=== PATIENT | female | born 1985 ===

== ENCOUNTER 2020-12-19 00:28 | Outpatient (CLI) | payer OTHER ==
[2020-12-19] MEDS ORDERED: PRENATAL TABLE1 EAC1 PO (00:40)
== END 2020-12-19 09:42 | disposition home or self-care (01) ==
LOC: EDBD 00:28 → OBS/DEL 00:28
PROVIDERS: ATTEND Obstetrics & Gynecology
DX: O47.1 False labor at or after 37 completed weeks of gestation (principal)

== ENCOUNTER 2020-12-19 12:00 | Inpatient (IN) | payer OTHER ==
[~2020-12-19] VITALS: Ht 165.1 cm; Wt 78.9 kg
[~2020-12-19 12:00] MED LIST: PRENATAL TABLE1 EAC1 PO
[2020-12-26] MEDS ORDERED: CODE1TAB37 PO (08:54)
[2020-12-26] MEDS ORDERED: OBSTETRIX ONE PO (08:56)
== END 2020-12-26 10:49 | disposition home or self-care (01) | DRG 787 ==
LOC: EDUNIT# 12:00 → EDBD 12:00 → LDR 12-22 11:19 → SURG-SUITE 12-22 11:19 → LDR 12-22 19:09 → SURG-SUITE 12-23 06:21 → OB/GYN 01-08 12:00
PROVIDERS: ADMIT Obstetrics & Gynecology; ATTEND Obstetrics & Gynecology
PROC: 3E0P7VZ Introduction of Hormone into Female Reproductive, Via Natural or Artificial Opening (ICD-10-PCS; 2020-12-22)
PROC: 4A1HXFZ Monitoring of Products of Conception, Cardiac Rhythm, External Approach (ICD-10-PCS; 2020-12-22)
PROC: 3E033VJ Introduction of Other Hormone into Peripheral Vein, Percutaneous Approach (ICD-10-PCS; 2020-12-23)
PROC: 10D00Z1 Extraction of Products of Conception, Low, Open Approach (ICD-10-PCS; principal; 2020-12-23 04:30)
DX: O36.8330 Maternal care for abnormalities of the fetal heart rate or rhythm, third trimester, not applicable or unspecified (principal); O41.03X0 Oligohydramnios, third trimester, not applicable or unspecified; Z3A.37 37 weeks gestation of pregnancy; Z37.0 Single live birth; Z20.822 Contact with and (suspected) exposure to COVID-19

== ENCOUNTER 2024-12-17 15:46 | Inpatient (IN) | payer OTHER ==
[~2024-12-17] VITALS: Ht 152.4 cm; Wt 2.3 kg
[2024-12-17 15:00] VITALS: BP 117/72
[~2024-12-17 15:46] MED LIST changes: +CODE1TAB37 PO; +OBSTETRIX ONE PO
[2024-12-17] MEDS ORDERED: RINGERS SOLUTION,LACTATED 1,000 ML IV SCH (16:00)
[2024-12-17 16:49] LABS: HEMATOCRIT 36.7 % (36.0-45.00); HEMOGLOBIN 12.5 g/dL (12.0-15.00); MEAN CELL VOLUME 95.8 fL (80.00-100.00); MEAN CORPUSCULAR HEMOGLOBIN 32.7 pg (27.00-32.0); MEAN CORPUSCULAR HGB CONC 34.1 g/dl (32.0-36.0); PLATELET COUNT 276 K/uL (150-450); RED BLOOD COUNT 3.83 M/uL (4.00-6.00); RED CELL DISTRIBUTION WIDTH 13.6 % (11.5-14.5)
[2024-12-17] MEDS ORDERED: PEPCID20 MG PO (17:01)
[2024-12-17 17:17] LABS: INR 0.94; PARTIAL THROMBOPLASTIN TIME 26.9 SECONDS (22.0-34.0); PROTHROMBIN TIME 10.3 SECONDS (9.0-11.5)
[2024-12-17 17:22] LABS: ALBUMIN 2.6 gm/dL (3.4-5.0); BILIRUBIN TOTAL 0.34 mg/dL (0.3-1.2); CREATININE SERUM 0.62 mg/dL (0.55-1.02); GFR 106.08; GLOBULINA 3.8 G/DL (2.4-3.5); POTASSIUM 4.07 mEq/L (3.5-5.1); TOTAL PROTEIN 6.4 gm/dL (6.4-8.2)
[2024-12-17 19:00] VITALS: BP 114/78
[2024-12-17] MEDS ORDERED: MAGNESIUM SULFATE IN WATER 4 GM/100 ML PIGGYBACK IV SCH (22:30)
[2024-12-17] MEDS ORDERED: MAGNESIUM SULFATE IN WATER 0.04 GM/ML IV.SOLN IV SCH (22:30)
[2024-12-17] MEDS ORDERED: CITRIC ACID/SODIUM CITRATE 30 ML BLIST.PACK PO ONE (22:45)
[2024-12-17 23:30] VITALS: BP 105/69
[2024-12-18] MEDS ORDERED: MAGNESIUM SULFATE IN WATER 0.04 GM/ML IV.SOLN IV SCH (01:45)
[2024-12-18] MEDS ORDERED: CEFOXITIN SODIUM 2,000 MG VIAL IV SCH (02:00)
[2024-12-18] MEDS ORDERED: OXYTOCIN 10 UNITS/ML VIAL ONE ×2 (02:14→05:27)
[2024-12-18] MEDS ORDERED: ERYTHROMYCIN BASE OPHT 1GM EACH TUBE OP ONE (02:14)
[2024-12-18] MEDS ORDERED: CITRIC ACID/SODIUM CITRATE 30 ML BLIST.PACK PO ONE (03:00)
[2024-12-18 06:02] VITALS: BP 106/63
[2024-12-18] MEDS ORDERED: PROMETHAZINE HCL 25 MG/ML AMPUL IM PRN (06:15)
[2024-12-18] MEDS ORDERED: MEPERIDINE HCL 25 MG/ML AMPUL IM PRN (06:15)
[2024-12-18] MEDS ORDERED: MEPERIDINE HCL/PF 25 MG,MEPERIDINE HCL/PF 50 MG IM PRN (06:15)
[2024-12-18 08:09] VITALS: BP 114/71
[2024-12-18] MEDS ORDERED: SIMETHICONE 125 MG CAPSULE PO SCH (09:00)
[2024-12-18 09:30] LABS: HEMATOCRIT 35.2 % (36.0-45.00); HEMOGLOBIN 12.2 g/dL (12.0-15.00); MEAN CELL VOLUME 94.9 fL (80.00-100.00); MEAN CORPUSCULAR HEMOGLOBIN 32.8 pg (27.00-32.0); MEAN CORPUSCULAR HGB CONC 34.5 g/dl (32.0-36.0); PLATELET COUNT 263 K/uL (150-450); RED BLOOD COUNT 3.71 M/uL (4.00-6.00); RED CELL DISTRIBUTION WIDTH 13.8 % (11.5-14.5)
[2024-12-18] MEDS ORDERED: KETOROLAC TROMETHAMINE 10 MG TABLET PO SCH (12:00)
[2024-12-18 15:50] VITALS: BP 113/68
[2024-12-18 20:25] VITALS: BP 101/64
[2024-12-19 02:12] VITALS: BP 112/74
[2024-12-19 06:09] LABS: HEMATOCRIT 33.1 % (36.0-45.00); HEMOGLOBIN 11.2 g/dL (12.0-15.00); MEAN CELL VOLUME 96.6 fL (80.00-100.00); MEAN CORPUSCULAR HEMOGLOBIN 32.8 pg (27.00-32.0); PLATELET COUNT 235 K/uL (150-450); RED BLOOD COUNT 3.42 M/uL (4.00-6.00); RED CELL DISTRIBUTION WIDTH 13.7 % (11.5-14.5)
[2024-12-19 09:09] VITALS: BP 112/79
[2024-12-19 09:30] VITALS: BP 112/72
[2024-12-19 21:05] VITALS: BP 106/66
[2024-12-20] VITALS: BP 107/56
[2024-12-20] MEDS ORDERED: KETO10TA2 PO (07:40)
[2024-12-20] MEDS ORDERED: PERCOCET 5-3251 EACH PO (07:41)
[2024-12-20 08:00] VITALS: BP 110/65
== END 2024-12-20 13:51 | disposition home or self-care (01) | DRG 784 ==
LOC: OB/GYN 15:46 → LDR 15:46 → OB/GYN 12-18 04:22
PROVIDERS: ADMIT Obstetrics & Gynecology Maternal & Fetal Medicine; ATTEND Obstetrics & Gynecology Maternal & Fetal Medicine
PROC: 10D00Z1 Extraction of Products of Conception, Low, Open Approach (ICD-10-PCS; principal; 2024-12-17)
PROC: 0UB70ZZ Excision of Bilateral Fallopian Tubes, Open Approach (ICD-10-PCS; 2024-12-17)
PROC: 4A1HXCZ Monitoring of Products of Conception, Cardiac Rate, External Approach (ICD-10-PCS; 2024-12-17)
DX: O36.8130 Decreased fetal movements, third trimester, not applicable or unspecified (principal); O41.03X0 Oligohydramnios, third trimester, not applicable or unspecified; O69.2XX0 Labor and delivery complicated by other cord entanglement, with compression, not applicable or unspecified; Z30.2 Encounter for sterilization; Z37.0 Single live birth